=== PATIENT | male | born 1990 | race Two or more races ===

== ENCOUNTER 2022-12-29 07:58 | Emergency (ER) | payer MEDICAID, OTHER ==
[~2022-12-29] VITALS: Ht 180.3 cm; Wt 63.0 kg
[2022-12-29 08:02] VITALS: BP 118/64; PULSE 70; RESP 18; TEMP 97.2; O2SAT 97
[2022-12-29] MEDS ORDERED: DexAMETHasone SOD PHOS 10MG/1ML VIAL INJ IM ONE (09:15)
[2022-12-29] MEDS ORDERED: HYDROcodone-ACET 10/325MG TAB PO ONE (09:15)
[2022-12-29] MEDS ORDERED: IBUP1TAB5 PO (10:12)
[2022-12-29] MEDS ORDERED: LIDO5PAD8 EX (10:13)
[2022-12-29] MEDS ORDERED: CYCL-839 PO (10:13)
== END 2022-12-29 10:34 | disposition home or self-care (01) ==
LOC: ER 07:58
DX: M54.32 Sciatica, left side (principal); Z79.899 Other long term (current) drug therapy
CPT/HCPCS: 96372; 99283; J1100